=== PATIENT | female | born 1930 | race African-American/Black ===

== ENCOUNTER 2016-05-23 17:13 | Emergency (ER) | payer MEDICARE, BC ==
[~2016-05-23] VITALS: Ht 162.6 cm; Wt 85.0 kg
[~2016-05-23 17:13] MED LIST: AMLO10TA4 PO; ASPI-1035 PO; ATOR20TA PO; MONT10TA24 PO; OLME20TA14 PO; SITA1TAB4 PO
[2016-05-23] MEDS ORDERED: METHYLPREDNISOLONE SOD SUCC 125 MG/2 ML VIAL IV STA (17:41)
[2016-05-23] MEDS ORDERED: IPRATROPIUM BROMIDE (0.02%) 0.5MG/2.5ML NEB HHN STA (17:41)
[2016-05-23] MEDS ORDERED: ALBUTEROL (0.083%) 2.5MG/3ML NEB HHN STA (17:41)
[2016-05-23] MEDS ORDERED: ALBUTEROL (0.5%) 2.5MG/0.5ML NEB HHN ONE (17:53)
[2016-05-23 18:18] LABS: BG BASE EXCESS 0.7 mmol/L (-2.0-2.0); BG CARBOXYHEMOGLOBIN 0.5 % (0.5-1.5); BG DEOXYHEMOGLOBIN 0.6 % (0.0-5.0); BG HCO3 ACT 25.7 mmol/L (22.0-26.0); BG METHEMOGLOBIN 0.5 % (0.0-1.5); BG OXYGEN SATURATION 99.4 % (92.0-98.5); BG OXYHEMOGLOBIN 98.4 % (94.0-97.0); BG PCO2 42.3 mmHg (35.0-45.0); BG PH 7.401 (7.350-7.450); BG PO2 208.7 mmHg (75.0-100.0); BG SAMPLE SITE RIGHT RADIAL; BG TOTAL HEMOGLOBIN 12.9 g/dL (12.0-18.0)
[2016-05-23 18:35] LABS: HEMATOCRIT. 36.5 % (36.0-48.0); MEAN CORPUSCULAR HEMOGLOBIN 27.8 pg (28.0-32.0); MEAN CORPUSCULAR HGB CONC 32.9 g/dL (31.0-37.0); MEAN CORPUSCULAR VOLUME 84.5 fL (81.0-99.0); MEAN PLATELET VOLUME 8.7 fl (7.4-10.4); PLATELET 250 x1000/uL (130-400); RED BLOOD CELL COUNT 4.32 mill/uL (4.2-5.4); RED CELL DISTRIBUTION WIDTH 14.2 % (11.6-14.6)
[2016-05-23 18:39] LABS: DIFFERENTIAL COMMENT 1
[2016-05-23 18:43] LABS: PARTIAL THROMBOPLASTIN TIME 23.6 sec (24.0-34.0); PROTHROMBIN TIME 10.8 sec
[2016-05-23 18:45] LABS: ALBUMIN 3.4 g/dL (3.4-5.0); ANION GAP 12; CALCIUM 9.1 mg/dL (8.5-10.1); CARBON DIOXIDE 29 mEq/L (21-32); CHLORIDE 103 mEq/L (98-107); INDEX HEMOLYSI 3 (1-3); INDEX ICTERIC 1 (1-4); INDEX LIPEMIC 1 (1-3); UREA NITROGEN BLOOD 23 mg/dL (7-21)
[2016-05-23 18:48] LABS: ALANINE AMINOTRANSFERASE 21 IU/L (13-61); eGFR > 60 mL/min (>60)
[2016-05-23 18:51] LABS: NT PRO B-TYPE NATRIURETIC PEP 195 pg/mL (5-125); TROPONIN I 0.02 ng/mL (0.00-0.04)
[2016-05-23 19:10] LABS: PLATELET ESTIMATE NORMAL
[2016-05-23 20:20] VITALS: BP 144/69
== END 2016-05-23 20:23 | disposition home or self-care (01) ==
LOC: ER 18:10
DX: J45.901 Unspecified asthma with (acute) exacerbation (principal); I10 Essential (primary) hypertension; E11.9 Type 2 diabetes mellitus without complications; I50.9 Heart failure, unspecified; I45.10 Unspecified right bundle-branch block; M41.9 Scoliosis, unspecified; Z90.710 Acquired absence of both cervix and uterus
CPT/HCPCS: 36415; 36600; 71010; 80053; 82375; 82805; 83605; 83880; 84484; 85025; 85610; 85730; 87040; 93005; 94640; 96374; 99285; J2930; J7611

== ENCOUNTER 2017-12-27 11:23 | Inpatient (IN) | payer MEDICARE, BC ==
[~2017-12-27] VITALS: Ht 167.6 cm; Wt 78.0 kg
[~2017-12-27 11:23] MED LIST changes: -ASPI-1035 PO; +ASPI-1158 PO
[2017-12-27] MEDS ORDERED: ASPIRIN 81MG TABLET PO ONE (12:00)
[2017-12-27] MEDS ORDERED: DILTIAZEM HCL 30MG TABLET PO ONE (12:00)
[2017-12-27] MEDS ORDERED: NITROGLYCERIN OINT 1GM/INCH UDPKT TD ONE (12:00)
[2017-12-27] MEDS ORDERED: METOPROLOL TARTRATE 5MG/5ML VIAL IV SCH (12:00)
[2017-12-27 12:36] LABS: BASOPHILS % 0.7 % (0.0-2.0); EOSINOPHILS % 1.7 % (0.0-5.0); HEMATOCRIT. 39.4 % (36.0-48.0); HEMOGLOBIN. 12.9 g/dL (12.0-16.0); LYMPHOCYTES % 11.4 % (20.0-50.0); MEAN CORPUSCULAR HEMOGLOBIN 27.4 pg (28.0-32.0); MEAN CORPUSCULAR VOLUME 83.7 fL (81.0-99.0); MEAN PLATELET VOLUME 8.5 fl (7.4-10.4); MONOCYTES % 4.6 % (2.0-8.0); NEUTROPHILS % 81.6 % (40.0-76.0); PLATELET 271 x1000/uL (130-400); RED CELL DISTRIBUTION WIDTH 14.6 % (11.6-14.6)
[2017-12-27 12:41] LABS: CHLORIDE 103 mEq/L (98-107)
[2017-12-27] MEDS ORDERED: FUROSEMIDE 40MG/4ML VIAL IVP NR (15:00)
[2017-12-27] MEDS ORDERED: VERAPAMIL HCL 2.5 MG/1 ML 2ML VIAL IV PRN (18:04)
[2017-12-27 18:45] VITALS: BP 137/75
[2017-12-27 20:00] VITALS: BP 128/64
[2017-12-27] MEDS: BENZONATATE 100MG CAPSULE PO SCH (21:39)
[2017-12-27] MEDS: ATORVASTATIN CALCIUM 20MG TABLET PO SCH (21:39)
[2017-12-27] MEDS: ENOXAPARIN 80MG/0.8ML SYR SUBCUT SCH (21:40)
[2017-12-27 22:00] VITALS: BP 131/70
[2017-12-27] MEDS: CEFTRIAXONE 1 G PREMIX 50 ML IV SCH (22:08)
[2017-12-27] MEDS: DILTIAZEM HCL 60MG TABLET PO SCH (22:39)
[2017-12-27] MEDS: AZITHROMYCIN 500 MG in DEXT 5% WATER 250 ML IV SCH (22:40)
[2017-12-28] VITALS (12 sets, daily range): BP systolic 104–156; BP diastolic 48–75
[2017-12-28] MEDS: IPRATROPIUM/ALBUTEROL 0.5-3(2.5)MG/3ML NEB HHN SCH ×4 (02:57→20:47)
[2017-12-28] MEDS: DILTIAZEM HCL 60MG TABLET PO SCH ×3 (06:00→22:00)
[2017-12-28] MEDS: BENZONATATE 100MG CAPSULE PO SCH ×3 (06:21→22:19)
[2017-12-28 07:14] LABS: BASOPHILS % 0.7 % (0.0-2.0); EOSINOPHILS % 6.5 % (0.0-5.0); HEMATOCRIT. 37.2 % (36.0-48.0); HEMOGLOBIN. 12.4 g/dL (12.0-16.0); LYMPHOCYTES % 23.1 % (20.0-50.0); MEAN CORPUSCULAR HEMOGLOBIN 27.8 pg (28.0-32.0); MEAN CORPUSCULAR VOLUME 83.4 fL (81.0-99.0); MEAN PLATELET VOLUME 9.5 fl (7.4-10.4); NEUTROPHILS % 58.7 % (40.0-76.0); PLATELET 251 x1000/uL (130-400); RED BLOOD CELL COUNT 4.45 mill/uL (4.2-5.4); RED CELL DISTRIBUTION WIDTH 14.4 % (11.6-14.6)
[2017-12-28] MEDS ORDERED: DEXTROSE 50% WATER 50ML SYRINGE IV PRN (07:15)
[2017-12-28] MEDS: BLOOD SUGAR DIAGNOSTIC STRIP TEST SCH ×4 (07:30→21:04)
[2017-12-28 07:36] LABS: CHLORIDE 101 mEq/L (98-107)
[2017-12-28] MEDS: INSULIN LISPRO 100 UNITS/ML SUBCUT SCH ×4 (08:00→21:00)
[2017-12-28] MEDS: ASPIRIN 81MG EC TABLET PO SCH (08:30)
[2017-12-28] MEDS: ENOXAPARIN 80MG/0.8ML SYR SUBCUT SCH ×2 (08:44→20:42)
[2017-12-28] MEDS ORDERED: AMLODIPINE 10MG TABLET PO SCH (09:00)
[2017-12-28] MEDS ORDERED: POTASSIUM CHLORIDE 20MEQ TABLET SR PO NR (10:45)
[2017-12-28] MEDS: MONTELUKAST SODIUM 10MG TABLET PO SCH (17:14)
[2017-12-28] MEDS ORDERED: ACETAMINOPHEN 325MG TABLET PO PRN (18:45)
[2017-12-28] MEDS: CEFTRIAXONE 1 G PREMIX 50 ML IV SCH (20:42)
[2017-12-28] MEDS: ATORVASTATIN CALCIUM 20MG TABLET PO SCH (20:42)
[2017-12-28] MEDS: AZITHROMYCIN 500 MG in DEXT 5% WATER 250 ML IV SCH (22:19)
[2017-12-29] VITALS (12 sets, daily range): BP systolic 98–157; BP diastolic 49–107
[2017-12-29] MEDS: IPRATROPIUM/ALBUTEROL 0.5-3(2.5)MG/3ML NEB HHN SCH ×6 (00:22→20:53)
[2017-12-29] MEDS: DILTIAZEM HCL 60MG TABLET PO SCH ×3 (06:14→22:04)
[2017-12-29] MEDS: BENZONATATE 100MG CAPSULE PO SCH ×3 (06:15→22:04)
[2017-12-29 06:56] LABS: BASOPHILS % 1.1 % (0.0-2.0); EOSINOPHILS % 12.1 % (0.0-5.0); HEMATOCRIT. 36.5 % (36.0-48.0); HEMOGLOBIN. 12.1 g/dL (12.0-16.0); LYMPHOCYTES % 35.5 % (20.0-50.0); MEAN CORPUSCULAR HEMOGLOBIN 27.6 pg (28.0-32.0); MEAN CORPUSCULAR VOLUME 83.7 fL (81.0-99.0); MEAN PLATELET VOLUME 8.9 fl (7.4-10.4); MONOCYTES % 9.6 % (2.0-8.0); NEUTROPHILS % 41.7 % (40.0-76.0); PLATELET 252 x1000/uL (130-400); RED BLOOD CELL COUNT 4.36 mill/uL (4.2-5.4); RED CELL DISTRIBUTION WIDTH 14.5 % (11.6-14.6)
[2017-12-29] MEDS: INSULIN LISPRO 100 UNITS/ML SUBCUT SCH ×4 (08:00→20:50)
[2017-12-29] MEDS: BLOOD SUGAR DIAGNOSTIC STRIP TEST SCH ×4 (08:04→20:50)
[2017-12-29 08:13] LABS: CHLORIDE 102 mEq/L (98-107)
[2017-12-29] MEDS: ENOXAPARIN 80MG/0.8ML SYR SUBCUT SCH ×2 (08:36→20:50)
[2017-12-29] MEDS: ASPIRIN 81MG EC TABLET PO SCH (10:01)
[2017-12-29] MEDS ORDERED: POTASSIUM CHLORIDE 20MEQ/PACKET PO NR (17:00)
[2017-12-29] MEDS: MONTELUKAST SODIUM 10MG TABLET PO SCH (17:09)
[2017-12-29] MEDS: ATORVASTATIN CALCIUM 20MG TABLET PO SCH (20:50)
[2017-12-29] MEDS: CEFTRIAXONE 1 G PREMIX 50 ML IV SCH (20:50)
[2017-12-29] MEDS: AZITHROMYCIN 500 MG in DEXT 5% WATER 250 ML IV SCH (22:04)
[2017-12-30] VITALS (13 sets, daily range): BP systolic 110–159; BP diastolic 51–98
[2017-12-30] MEDS: IPRATROPIUM/ALBUTEROL 0.5-3(2.5)MG/3ML NEB HHN SCH ×6 (01:28→21:24)
[2017-12-30] MEDS: BENZONATATE 100MG CAPSULE PO SCH ×3 (05:51→20:55)
[2017-12-30] MEDS: DILTIAZEM HCL 60MG TABLET PO SCH ×3 (05:52→20:56)
[2017-12-30 06:21] LABS: HEMOGLOBIN. 11.9 g/dL (12.0-16.0); MEAN CORPUSCULAR HEMOGLOBIN 27.6 pg (28.0-32.0); MEAN CORPUSCULAR VOLUME 83.8 fL (81.0-99.0); MEAN PLATELET VOLUME 9.2 fl (7.4-10.4); PLATELET 244 x1000/uL (130-400); RED CELL DISTRIBUTION WIDTH 14.5 % (11.6-14.6)
[2017-12-30 07:21] LABS: CHLORIDE 104 mEq/L (98-107)
[2017-12-30] MEDS: BLOOD SUGAR DIAGNOSTIC STRIP TEST SCH ×4 (07:39→21:00)
[2017-12-30] MEDS: INSULIN LISPRO 100 UNITS/ML SUBCUT SCH ×4 (07:40→21:00)
[2017-12-30] MEDS: ASPIRIN 81MG EC TABLET PO SCH (08:52)
[2017-12-30] MEDS: ENOXAPARIN 80MG/0.8ML SYR SUBCUT SCH ×2 (08:53→20:55)
[2017-12-30 10:49] LABS: PLATELET ESTIMATE NORMAL
[2017-12-30] MEDS: MONTELUKAST SODIUM 10MG TABLET PO SCH (17:27)
[2017-12-30] MEDS: ATORVASTATIN CALCIUM 20MG TABLET PO SCH (20:55)
[2017-12-30] MEDS: CEFTRIAXONE 1 G PREMIX 50 ML IV SCH (20:55)
[2017-12-30] MEDS: AZITHROMYCIN 500 MG in DEXT 5% WATER 250 ML IV SCH (20:56)
[2017-12-31] VITALS (10 sets, daily range): BP systolic 113–148; BP diastolic 54–77
[2017-12-31] MEDS: IPRATROPIUM/ALBUTEROL 0.5-3(2.5)MG/3ML NEB HHN SCH ×4 (00:29→19:51)
[2017-12-31] MEDS: DILTIAZEM HCL 60MG TABLET PO SCH ×3 (06:44→21:14)
[2017-12-31] MEDS: BENZONATATE 100MG CAPSULE PO SCH ×3 (06:44→21:15)
[2017-12-31 06:58] LABS: HEMOGLOBIN. 11.8 g/dL (12.0-16.0); MEAN CORPUSCULAR HEMOGLOBIN 27.6 pg (28.0-32.0); MEAN CORPUSCULAR VOLUME 84.4 fL (81.0-99.0); PLATELET 254 x1000/uL (130-400); RED BLOOD CELL COUNT 4.27 mill/uL (4.2-5.4); RED CELL DISTRIBUTION WIDTH 14.6 % (11.6-14.6)
[2017-12-31] MEDS: INSULIN LISPRO 100 UNITS/ML SUBCUT SCH ×4 (08:00→21:00)
[2017-12-31] MEDS: BLOOD SUGAR DIAGNOSTIC STRIP TEST SCH ×4 (08:25→21:00)
[2017-12-31] MEDS: LORATADINE 10MG TABLET PO SCH (08:44)
[2017-12-31] MEDS: ENOXAPARIN 80MG/0.8ML SYR SUBCUT SCH ×2 (08:44→21:11)
[2017-12-31] MEDS: ASPIRIN 81MG EC TABLET PO SCH (08:44)
[2017-12-31 09:55] LABS: CHLORIDE 104 mEq/L (98-107)
[2017-12-31 13:10] LABS: PLATELET ESTIMATE NORMAL
[2017-12-31] MEDS: MONTELUKAST SODIUM 10MG TABLET PO SCH (17:36)
[2017-12-31] MEDS: ATORVASTATIN CALCIUM 20MG TABLET PO SCH (21:10)
[2017-12-31] MEDS: AZITHROMYCIN 500 MG in DEXT 5% WATER 250 ML IV SCH (21:15)
[2017-12-31] MEDS: CEFTRIAXONE 1 G PREMIX 50 ML IV SCH (21:20)
[2018-01-01] VITALS (8 sets, daily range): BP systolic 133–167; BP diastolic 62–79
[2018-01-01] MEDS: IPRATROPIUM/ALBUTEROL 0.5-3(2.5)MG/3ML NEB HHN SCH ×4 (00:31→11:50)
[2018-01-01] MEDS: BENZONATATE 100MG CAPSULE PO SCH ×2 (05:15→13:16)
[2018-01-01] MEDS: DILTIAZEM HCL 60MG TABLET PO SCH ×2 (05:15→13:13)
[2018-01-01] MEDS: INSULIN LISPRO 100 UNITS/ML SUBCUT SCH ×2 (08:00→13:11)
[2018-01-01] MEDS: BLOOD SUGAR DIAGNOSTIC STRIP TEST SCH ×2 (08:08→11:42)
[2018-01-01] MEDS: ENOXAPARIN 80MG/0.8ML SYR SUBCUT SCH (08:35)
[2018-01-01] MEDS: ASPIRIN 81MG EC TABLET PO SCH (08:35)
[2018-01-01] MEDS: LORATADINE 10MG TABLET PO SCH (08:35)
== END 2018-01-01 14:45 | disposition home or self-care (01) | DRG 190 ==
LOC: ER 11:23 → 5EST 12:59 → EDBEDREQTM 13:04 → EDBEDREQSVC 13:04 → EDBEDREQ 13:04 → ENRESERV 15:40 → CANBEDREQ 16:40
PROVIDERS: ADMIT Internal Medicine; ATTEND Internal Medicine
DX: J44.0 Chronic obstructive pulmonary disease with (acute) lower respiratory infection (principal); J18.0 Bronchopneumonia, unspecified organism; J45.901 Unspecified asthma with (acute) exacerbation; I11.0 Hypertensive heart disease with heart failure; I48.0 Paroxysmal atrial fibrillation; E11.9 Type 2 diabetes mellitus without complications; E87.6 Hypokalemia; I50.9 Heart failure, unspecified; E78.5 Hyperlipidemia, unspecified; H91.90 Unspecified hearing loss, unspecified ear; I27.20 Pulmonary hypertension, unspecified; J44.1 Chronic obstructive pulmonary disease with (acute) exacerbation; M16.12 Unilateral primary osteoarthritis, left hip; Z96.641 Presence of right artificial hip joint; E66.9 Obesity, unspecified; I35.8 Other nonrheumatic aortic valve disorders; I49.1 Atrial premature depolarization; Z79.4 Long term (current) use of insulin; Z82.49 Family history of ischemic heart disease and other diseases of the circulatory system; Z90.710 Acquired absence of both cervix and uterus; Z87.01 Personal history of pneumonia (recurrent); Z68.27 Body mass index [BMI] 27.0-27.9, adult; Z79.899 Other long term (current) drug therapy; Z79.82 Long term (current) use of aspirin; Z88.5 Allergy status to narcotic agent; Z90.49 Acquired absence of other specified parts of digestive tract
CPT/HCPCS: 36415; 71045; 71250; 80048; 82962; 83036; 83605; 83735; 83880; 84443; 84484; 85379; 85651; 87070; 87077; 93005; 93306; 93970; 94640; 96374; 97162; 97165; 99291; A6261; J0456; J0696; J1650; J1815; J1940; J3490; J7050; J7060; J7620

== ENCOUNTER 2019-08-30 18:20 | Inpatient (IN) | payer BC, MEDICARE ==
[~2019-08-30] VITALS: Ht 162.6 cm; Wt 59.9 kg
[~2019-08-30 18:20] MED LIST changes: -AMLO10TA4 PO; -MONT10TA24 PO; +MONT10TA26 PO; +OLME20TA13 PO; -OLME20TA14 PO
[2019-08-30 20:03] LABS: BASOPHILS % 0.5 % (0.0-2.0); EOSINOPHILS % 2.8 % (0.0-5.0); HEMATOCRIT. 34.8 % (36.0-48.0); HEMOGLOBIN. 11.6 g/dL (12.0-16.0); LYMPHOCYTES % 12.8 % (20.0-50.0); MEAN CORPUSCULAR HEMOGLOBIN 27.5 pg (28.0-32.0); MEAN CORPUSCULAR VOLUME 82.8 fL (81.0-99.0); MEAN PLATELET VOLUME 7.8 fl (7.4-10.4); MONOCYTES % 9.1 % (2.0-8.0); NEUTROPHILS % 74.8 % (40.0-76.0); PLATELET 346 x1000/uL (130-400); RED CELL DISTRIBUTION WIDTH 14.4 % (11.6-14.6)
[2019-08-30 20:12] LABS: INR 0.9; PROTHROMBIN TIME 10.2 sec (9.6-11.0)
[2019-08-30 20:13] LABS: CHLORIDE 95 mEq/L (98-107)
[2019-08-30] MEDS ORDERED: ONDANSETRON HCL 4MG/2ML INJ IV ONE (20:15)
[2019-08-30] MEDS ORDERED: SODIUM CHLORIDE 0.9% 1,000 ML IV ONE (21:15)
[2019-08-30] MEDS ORDERED: HYDROCODONE/ACETAMINOPHEN 5/325MG TABLET PO ONE (21:15)
[2019-08-30] MEDS ORDERED: ACETAMINOPHEN 650MG SUPP PR PRN (22:45)
[2019-08-30] MEDS ORDERED: ACETAMINOPHEN 650MG/20.3ML UDC GT PRN ×2 (22:45)
[2019-08-30] MEDS ORDERED: CEFTRIAXONE 1 G PREMIX 50 ML IV SCH (23:00)
[2019-08-31] MEDS ORDERED: AZITHROMYCIN 500 MG in DEXT 5% WATER 250 ML IV SCH ×2
[2019-08-31] MEDS ORDERED: ALBUTEROL 6.7GM HFA INHALER ORI SCH
[2019-08-31 00:25] LABS: CLARITY URINE CLEAR (CLEAR); COLOR URINE YELLOW (YELLOW); KETONES URINE NEGATIVE (NEGATIVE); LEUKOCYTE ESTERASE URINE 1+ (NEGATIVE); NITRITE URINE NEGATIVE (NEGATIVE); OCCULT BLOOD URINE NEGATIVE (NEGATIVE); PROTEIN URINE NEGATIVE (NEGATIVE); UROBILINOGEN URINE 0.2 E.U./dL (0.2-1.0)
[2019-08-31 04:00] VITALS: BP 153/57
[2019-08-31 08:00] VITALS: BP 131/48
[2019-08-31] MEDS: ENOXAPARIN 30MG/0.3ML SYR SUBCUT SCH (08:42)
[2019-08-31] MEDS ORDERED: CLONIDINE 0.1MG TABLET PO PRN (08:45)
[2019-08-31] MEDS ORDERED: MAGNESIUM/ALUMINUM HYDROXIDE/SIMETHICONE 30ML UDC PO PRN (08:45)
[2019-08-31] MEDS ORDERED: DOCUSATE SODIUM 100MG CAPSULE PO PRN (08:45)
[2019-08-31] MEDS ORDERED: GUAIFENESIN 200MG/10ML SUGAR FREE UDC PO PRN (08:45)
[2019-08-31] MEDS ORDERED: DIPHENHYDRAMINE 50MG/ML VIAL IV PRN (08:45)
[2019-08-31] MEDS ORDERED: ENOXAPARIN 40MG/0.4ML SYR SUBCUT SCH (08:45)
[2019-08-31] MEDS ORDERED: ACETAMINOPHEN 650MG SUPP PR PRN (08:45)
[2019-08-31] MEDS ORDERED: ACETAMINOPHEN 650MG/20.3ML UDC GT PRN ×2 (08:45)
[2019-08-31] MEDS: SODIUM CHLORIDE 0.9% 1,000 ML IV SCH (09:23)
[2019-08-31 09:49] LABS: BASOPHILS % 0.4 % (0.0-2.0); EOSINOPHILS % 5.4 % (0.0-5.0); HEMATOCRIT. 34.9 % (36.0-48.0); HEMOGLOBIN. 11.6 g/dL (12.0-16.0); LYMPHOCYTES % 13.4 % (20.0-50.0); MEAN CORPUSCULAR HEMOGLOBIN 27.7 pg (28.0-32.0); MEAN CORPUSCULAR VOLUME 82.9 fL (81.0-99.0); MEAN PLATELET VOLUME 8.3 fl (7.4-10.4); MONOCYTES % 6.1 % (2.0-8.0); NEUTROPHILS % 74.7 % (40.0-76.0); PLATELET 355 x1000/uL (130-400); RED BLOOD CELL COUNT 4.21 mill/uL (4.2-5.4); RED CELL DISTRIBUTION WIDTH 13.9 % (11.6-14.6)
[2019-08-31 09:59] LABS: CHLORIDE 101 mEq/L (98-107)
[2019-08-31 10:09] LABS: LDL CHOLESTEROL 62 mg/dL (5-100)
[2019-08-31 10:10] LABS: CREATINE KINASE MB FRACTION 1.4 ng/mL (0.5-3.6); HDL CHOLESTEROL 74 mg/dL (40-59)
[2019-08-31 10:11] LABS: CREATINE KINASE 63 IU/L (26-192)
[2019-08-31 12:00] VITALS: BP 104/39
[2019-08-31 12:08] LABS: CLARITY URINE CLEAR (CLEAR); COLOR URINE YELLOW (YELLOW); KETONES URINE NEGATIVE (NEGATIVE); LEUKOCYTE ESTERASE URINE TRACE (NEGATIVE); NITRITE URINE NEGATIVE (NEGATIVE); OCCULT BLOOD URINE NEGATIVE (NEGATIVE); PH URINE 5.5 (4.5-8.0); PROTEIN URINE NEGATIVE (NEGATIVE); SPECIFIC GRAVITY URINE 1.013 (1.005-1.030); UROBILINOGEN URINE 0.2 E.U./dL (0.2-1.0)
[2019-08-31] MEDS: ACETAMINOPHEN 325MG TABLET PO PRN ×2 (15:33→22:00)
[2019-08-31 16:00] VITALS: BP 121/47
[2019-08-31 20:00] VITALS: BP 138/68
[2019-09-01] VITALS: BP_SYST 131; BP_SYST 171; BP_DIAS 60; BP_DIAS 78
[2019-09-01] MEDS: SODIUM CHLORIDE 0.9% 1,000 ML IV SCH (03:40)
[2019-09-01 04:00] VITALS: BP 123/63
[2019-09-01] MEDS: CEFTRIAXONE 1 G PREMIX 50 ML IV SCH (05:27)
[2019-09-01] MEDS: AZITHROMYCIN 500 MG in DEXT 5% WATER 250 ML IV SCH (06:00)
[2019-09-01] MEDS: ACETAMINOPHEN 325MG TABLET PO PRN ×2 (06:12→22:34)
[2019-09-01 07:55] LABS: BASOPHILS % 0.2 % (0.0-2.0); EOSINOPHILS % 11.2 % (0.0-5.0); HEMATOCRIT. 31.3 % (36.0-48.0); HEMOGLOBIN. 10.5 g/dL (12.0-16.0); LYMPHOCYTES % 20.7 % (20.0-50.0); MEAN CORPUSCULAR HEMOGLOBIN 27.7 pg (28.0-32.0); MEAN CORPUSCULAR VOLUME 82.7 fL (81.0-99.0); MEAN PLATELET VOLUME 7.8 fl (7.4-10.4); MONOCYTES % 8.7 % (2.0-8.0); NEUTROPHILS % 59.2 % (40.0-76.0); PLATELET 328 x1000/uL (130-400); RED BLOOD CELL COUNT 3.79 mill/uL (4.2-5.4); RED CELL DISTRIBUTION WIDTH 13.6 % (11.6-14.6)
[2019-09-01 08:00] VITALS: BP 124/66
[2019-09-01 08:16] LABS: CHLORIDE 103 mEq/L (98-107)
[2019-09-01 08:26] LABS: LDL CHOLESTEROL 55 mg/dL (5-100)
[2019-09-01 08:27] LABS: CREATINE KINASE 43 IU/L (26-192)
[2019-09-01 08:29] LABS: HDL CHOLESTEROL 58 mg/dL (40-59)
[2019-09-01 08:31] LABS: CREATINE KINASE MB FRACTION < 1.0 ng/mL (0.5-3.6)
[2019-09-01] MEDS: ENOXAPARIN 30MG/0.3ML SYR SUBCUT SCH (10:25)
[2019-09-01 12:00] VITALS: BP 139/54
[2019-09-01] MEDS: IPRATROPIUM/ALBUTEROL 0.5-3(2.5)MG/3ML NEB HHN SCH ×2 (15:18→21:08)
[2019-09-01 16:00] VITALS: BP 158/65
[2019-09-01] MEDS ORDERED: MONTELUKAST SODIUM 10MG TABLET PO SCH (17:00)
[2019-09-01 20:00] VITALS: BP 152/69
[2019-09-01] MEDS ORDERED: FAMOTIDINE 20MG/2ML VIAL IV SCH (21:00)
[2019-09-02] VITALS: BP 147/56
[2019-09-02] MEDS: IPRATROPIUM/ALBUTEROL 0.5-3(2.5)MG/3ML NEB HHN SCH ×2 (02:30→09:37)
[2019-09-02 04:00] VITALS: BP 148/58
[2019-09-02] MEDS: CEFTRIAXONE 1 G PREMIX 50 ML IV SCH (05:36)
[2019-09-02] MEDS: AZITHROMYCIN 500 MG in DEXT 5% WATER 250 ML IV SCH (07:00)
[2019-09-02 08:00] VITALS: BP 151/61
[2019-09-02] MEDS ORDERED: LORATADINE 10MG TABLET PO SCH (09:00)
[2019-09-02] MEDS: ENOXAPARIN 30MG/0.3ML SYR SUBCUT SCH (09:18)
[2019-09-02] MEDS ORDERED: ACETYLCYSTEINE 100MG/ML 10% VIAL 4ML INH SCH (11:30)
[2019-09-02 12:00] VITALS: BP 102/51
[2019-09-02 13:44] VITALS: BP 102/51
[2019-09-03] MEDS ORDERED: AZITHROMYCIN 500 MG TABLET PO SCH (09:00)
== END 2019-09-02 15:00 | disposition home or self-care (01) | DRG 682 ==
LOC: ER 18:20 → EDBEDREQ 22:04 → EDBEDREQTM 22:04 → EDBEDREQSVC 22:05 → ENRESERV 08-31 02:57 → 7WST 08-31 04:23 → 5WST 09-01 08:39
PROVIDERS: ADMIT Family Medicine; ATTEND Family Medicine
DX: N17.9 Acute kidney failure, unspecified (principal); I50.33 Acute on chronic diastolic (congestive) heart failure; J96.00 Acute respiratory failure, unspecified whether with hypoxia or hypercapnia; E46 Unspecified protein-calorie malnutrition; J45.901 Unspecified asthma with (acute) exacerbation; I13.2 Hypertensive heart and chronic kidney disease with heart failure and with stage 5 chronic kidney disease, or end stage renal disease; E11.22 Type 2 diabetes mellitus with diabetic chronic kidney disease; E78.5 Hyperlipidemia, unspecified; D64.9 Anemia, unspecified; I48.91 Unspecified atrial fibrillation; M19.90 Unspecified osteoarthritis, unspecified site; D72.810 Lymphocytopenia; D72.821 Monocytosis (symptomatic); N18.6 End stage renal disease; Z88.5 Allergy status to narcotic agent; Z79.899 Other long term (current) drug therapy; Z90.710 Acquired absence of both cervix and uterus; Z79.82 Long term (current) use of aspirin; Z90.49 Acquired absence of other specified parts of digestive tract; Z03.818 Encounter for observation for suspected exposure to other biological agents ruled out; Z68.22 Body mass index [BMI] 22.0-22.9, adult
CPT/HCPCS: 36415; 71045; 76770; 80053; 80061; 81003; 82550; 82553; 82962; 83605; 83880; 84145; 84484; 85025; 85379; 93005; 93970; 94640; 97162; 97535; 99285; J0456; J0696; J1650; J2405; J3490; J7030; J7060; J7608; U0003-CS

== ENCOUNTER 2020-08-02 14:09 | Emergency (ER) | payer BC ==
[~2020-08-02] VITALS: Ht 160 cm; Wt 50.0 kg
[~2020-08-02 14:09] MED LIST changes: -ASPI-1158 PO; +ASPI-1406 PO; -MONT10TA26 PO; +MONT10TA32 PO
[2020-08-02 14:10] VITALS: BP 125/63
[2020-08-02 19:40] LABS: BASOPHILS % 0.5 % (0.0-2.0); EOSINOPHILS % 0.6 % (0.0-5.0); HEMATOCRIT. 35.4 % (36.0-48.0); HEMOGLOBIN. 11.6 g/dL (12.0-16.0); MEAN CORPUSCULAR HEMOGLOBIN 27.2 pg (28.0-32.0); MEAN CORPUSCULAR VOLUME 83.4 fL (81.0-99.0); MEAN PLATELET VOLUME 8.5 fl (7.4-10.4); MONOCYTES % 5.7 % (2.0-8.0); NEUTROPHILS % 79.2 % (40.0-76.0); PLATELET 317 x1000/uL (130-400); RED BLOOD CELL COUNT 4.25 mill/uL (4.2-5.4); RED CELL DISTRIBUTION WIDTH 14.5 % (11.6-14.6)
[2020-08-02 19:44] LABS: CHLORIDE 103 mEq/L (98-107)
[2020-08-02 19:49] LABS: ETHANOL BLOOD < 10 mg/dL
== END 2020-08-02 21:16 | disposition left against medical advice (07) ==
LOC: ER 14:09
DX: Z53.21 Procedure and treatment not carried out due to patient leaving prior to being seen by health care provider (principal)
CPT/HCPCS: 36415; 80053; 80320; 82962; 83880; 84484; 85025; 86850; 86900; 93005; G0480

== ENCOUNTER 2020-11-02 16:57 | Inpatient (IN) | payer BC ==
[~2020-11-02] VITALS: Ht 162.6 cm; Wt 68.0 kg
[2020-11-02] MEDS ORDERED: TETANUS, DIPHTHERIA, PERTUSSIS VAC/PF 0.5ML (>7YR OLD) IM ONE (18:30)
[2020-11-02] MEDS ORDERED: BACITRACIN ZINC OINT UDPKT TOP ONE (18:30)
[2020-11-02] MEDS ORDERED: ACETAMINOPHEN 325MG TABLET PO ONE (18:30)
[2020-11-02] MEDS ORDERED: SODIUM CHLORIDE 0.9% 1,000 ML IV ONE (20:45)
[2020-11-02 22:25] LABS: BASOPHILS % 0.4 % (0.0-2.0); EOSINOPHILS % 1.2 % (0.0-5.0); HEMATOCRIT. 34.9 % (36.0-48.0); HEMOGLOBIN. 11.5 g/dL (12.0-16.0); LYMPHOCYTES % 17.4 % (20.0-50.0); MEAN CORPUSCULAR HEMOGLOBIN 28.5 pg (28.0-32.0); MEAN CORPUSCULAR VOLUME 86.5 fL (81.0-99.0); MEAN PLATELET VOLUME 8.2 fl (7.4-10.4); MONOCYTES % 8.7 % (2.0-8.0); NEUTROPHILS % 72.3 % (40.0-76.0); PLATELET 255 x1000/uL (130-400); RED BLOOD CELL COUNT 4.04 mill/uL (4.2-5.4); RED CELL DISTRIBUTION WIDTH 15.5 % (11.6-14.6)
[2020-11-02 22:36] LABS: CHLORIDE 103 mEq/L (98-107)
[2020-11-02 22:37] LABS: INR 1.1; PROTHROMBIN TIME 11.4 sec (9.6-11.0)
[2020-11-02 23:29] LABS: CLARITY URINE CLOUDY (CLEAR); COLOR URINE YELLOW (YELLOW); KETONES URINE NEGATIVE (NEGATIVE); LEUKOCYTE ESTERASE URINE 3+ (NEGATIVE); NITRITE URINE NEGATIVE (NEGATIVE); OCCULT BLOOD URINE NEGATIVE (NEGATIVE); PH URINE 5.5 (4.5-8.0); PROTEIN URINE NEGATIVE (NEGATIVE); SPECIFIC GRAVITY URINE 1.009 (1.005-1.030); UROBILINOGEN URINE 0.2 E.U./dL (0.2-1.0)
[2020-11-03] MEDS ORDERED: ONDANSETRON HCL 4MG/2ML INJ IV PRN (00:15)
[2020-11-03] MEDS ORDERED: DOCUSATE SODIUM 100MG CAPSULE PO PRN (00:15)
[2020-11-03] MEDS ORDERED: ACETAMINOPHEN 325MG TABLET PO PRN (00:15)
[2020-11-03] MEDS ORDERED: IPRATROPIUM/ALBUTEROL 0.5-3(2.5)MG/3ML NEB NEB PRN (00:15)
[2020-11-03] MEDS ORDERED: CLONIDINE 0.1MG TABLET PO PRN (00:15)
[2020-11-03] MEDS ORDERED: MAGNESIUM/ALUMINUM HYDROXIDE/SIMETHICONE 30ML UDC PO PRN (00:15)
[2020-11-03] MEDS ORDERED: CEFTRIAXONE 1 G PREMIX 50 ML IV SCH (00:30)
[2020-11-03] MEDS: SODIUM CHLORIDE 0.9% 1,000 ML IV SCH ×2 (00:40→16:55)
[2020-11-03] MEDS ORDERED: CEFTRIAXONE 1 G PREMIX 50 ML IV ONE (00:45)
[2020-11-03 05:13] LABS: BASOPHILS % 0.8 % (0.0-2.0); EOSINOPHILS % 1.7 % (0.0-5.0); HEMATOCRIT. 32.7 % (36.0-48.0); LYMPHOCYTES % 16.9 % (20.0-50.0); MEAN CORPUSCULAR HEMOGLOBIN 28.4 pg (28.0-32.0); MEAN CORPUSCULAR VOLUME 84.6 fL (81.0-99.0); MEAN PLATELET VOLUME 8.4 fl (7.4-10.4); MONOCYTES % 8.4 % (2.0-8.0); NEUTROPHILS % 72.2 % (40.0-76.0); PLATELET 231 x1000/uL (130-400); RED BLOOD CELL COUNT 3.86 mill/uL (4.2-5.4); RED CELL DISTRIBUTION WIDTH 15.5 % (11.6-14.6)
[2020-11-03 05:27] LABS: CREATINE KINASE MB FRACTION 2.6 ng/mL (0.5-3.6)
[2020-11-03] MEDS ORDERED: HEPARIN 5000 UNITS/ML VIAL SUBCUT SCH (09:00)
[2020-11-03] MEDS: SILVER SULFADIAZINE 1% CREAM 25GM TOP SCH ×2 (10:13→21:46)
[2020-11-03] MEDS ORDERED: MAGNESIUM 1 G PREMIX 100 ML IV SCH (16:00)
[2020-11-03 17:45] VITALS: BP 141/83
[2020-11-03 17:48] VITALS: BP 141/83
[2020-11-03] MEDS ORDERED: VANCOMYCIN 1500MG in DEXTROSE 5% WATER 250ML IV SCH (18:00)
[2020-11-03] MEDS ORDERED: ENOXAPARIN 80MG/0.8ML SYR SUBCUT SCH (18:00)
[2020-11-03] MEDS ORDERED: DIGOXIN 125MCG TABLET PO SCH (18:00)
[2020-11-03] MEDS: DILTIAZEM HCL 120MG CAPSULE CD 24HR PO SCH (18:04)
[2020-11-03 18:28] LABS: CREATINE KINASE MB FRACTION 3.3 ng/mL (0.5-3.6)
[2020-11-03 19:30] VITALS: BP 140/88
[2020-11-03 20:00] VITALS: BP 140/86
[2020-11-03] MEDS ORDERED: ENOXAPARIN 30MG/0.3ML SYR SUBCUT SCH (21:00)
[2020-11-03] MEDS ORDERED: CEFTRIAXONE 1,000 MG in DEXTROSE 5% WATER 50 ML IV SCH (22:00)
[2020-11-04] VITALS (7 sets, daily range): BP systolic 110–141; BP diastolic 59–70
[2020-11-04] MEDS ORDERED: DIGO250T79 PO (01:39)
[2020-11-04] MEDS ORDERED: PRED5TAB PO (01:43)
[2020-11-04] MEDS ORDERED: DILT180T11 PO (01:44)
[2020-11-04] MEDS ORDERED: LOSA100T32 PO (01:44)
[2020-11-04] MEDS ORDERED: CYPR4SYR PO (01:45)
[2020-11-04] MEDS ORDERED: PANT40TA51 PO (01:48)
[2020-11-04] MEDS ORDERED: SITA1TAB2 PO (01:54)
[2020-11-04] MEDS ORDERED: DYR5 GT (01:56)
[2020-11-04] MEDS ORDERED: ALBU6.7H9 INH (02:06)
[2020-11-04 08:20] LABS: BASOPHILS % 0.7 % (0.0-2.0); EOSINOPHILS % 1.6 % (0.0-5.0); HEMATOCRIT. 37.1 % (36.0-48.0); HEMOGLOBIN. 12.2 g/dL (12.0-16.0); LYMPHOCYTES % 14.3 % (20.0-50.0); MEAN CORPUSCULAR HEMOGLOBIN 28.2 pg (28.0-32.0); MEAN CORPUSCULAR VOLUME 86.2 fL (81.0-99.0); NEUTROPHILS % 74.4 % (40.0-76.0); PLATELET 254 x1000/uL (130-400); RED CELL DISTRIBUTION WIDTH 15.1 % (11.6-14.6)
[2020-11-04 08:49] LABS: T4 FREE 1.47 ng/dL (0.76-1.46)
[2020-11-04] MEDS ORDERED: POTASSIUM CHLORIDE 20MEQ/PACKET PO NR (09:00)
[2020-11-04 09:01] LABS: DIGOXIN 2.2 ng/mL (0.9-2.0)
[2020-11-04] MEDS: DILTIAZEM HCL 120MG CAPSULE CD 24HR PO SCH (09:20)
[2020-11-04] MEDS: SODIUM CHLORIDE 0.9% 1,000 ML IV SCH (09:21)
[2020-11-04] MEDS: SILVER SULFADIAZINE 1% CREAM 25GM TOP SCH (09:21)
[2020-11-04] MEDS ORDERED: DILT120C88 PO (10:14)
[2020-11-04] MEDS ORDERED: LEVO500T89 MT (10:43)
[2020-11-04] MEDS ORDERED: MAGNESIUM 2 G PREMIX 50 ML IV NR (11:00)
[2020-11-04] MEDS ORDERED: ENOXAPARIN 40MG/0.4ML SYR SUBCUT SCH (21:00)
== END 2020-11-04 17:02 | disposition home or self-care (01) | DRG 871 ==
LOC: ER 16:57 → MICUSO 23:25 → EDBEDREQTM 23:30 → EDBEDREQ 23:30 → 6WST 11-03 16:13
PROVIDERS: ADMIT Internal Medicine; ATTEND Internal Medicine
DX: A41.89 Other specified sepsis (principal); I21.4 Non-ST elevation (NSTEMI) myocardial infarction; I50.30 Unspecified diastolic (congestive) heart failure; N17.9 Acute kidney failure, unspecified; N39.0 Urinary tract infection, site not specified; E11.9 Type 2 diabetes mellitus without complications; D64.9 Anemia, unspecified; E78.5 Hyperlipidemia, unspecified; E83.42 Hypomagnesemia; E87.6 Hypokalemia; G89.29 Other chronic pain; M25.552 Pain in left hip; I11.0 Hypertensive heart disease with heart failure; I25.10 Atherosclerotic heart disease of native coronary artery without angina pectoris; I48.91 Unspecified atrial fibrillation; J32.0 Chronic maxillary sinusitis; Z96.641 Presence of right artificial hip joint; J45.909 Unspecified asthma, uncomplicated; M16.12 Unilateral primary osteoarthritis, left hip; T24.211A Burn of second degree of right thigh, initial encounter; Z98.2 Presence of cerebrospinal fluid drainage device; Z79.899 Other long term (current) drug therapy; Y93.89 Activity, other specified; Y92.098 Other place in other non-institutional residence as the place of occurrence of the external cause; Y99.8 Other external cause status; Z90.49 Acquired absence of other specified parts of digestive tract; Z90.710 Acquired absence of both cervix and uterus; M17.0 Bilateral primary osteoarthritis of knee; W01.0XXA Fall on same level from slipping, tripping and stumbling without subsequent striking against object, initial encounter; Z79.82 Long term (current) use of aspirin
CPT/HCPCS: 36415; 71045; 73502; 73562; 76770; 80048; 80053; 80061; 80162; 81003; 82550; 82553; 83036; 83735; 84439; 84443; 84481; 84484; 85025; 90715; 93005; 93970; 97162; 99285; J0696; J1644; J1650; J3370; J3475; J7030; J7060